=== PATIENT | female | born 1970 | race Caucasian/White ===

== ENCOUNTER 2018-01-28 08:06 | Emergency (ER) | payer BC, OTHER ==
[2018-01-28 08:10] VITALS: BP 143/98
[2018-01-28] MEDS ORDERED: Acetaminophen TAB* 325 MG PO ONE (08:16)
[2018-01-28] MEDS ORDERED: Ibuprofen TAB* 600 MG PO ONE (08:16)
--- NOTE | 2018-01-28 08:25 | ED ---
Upper Extremity Pain - HPI Summary HPI Summary: This is Ayan Nazario, documenting for attending Gabriel Ruiz MD. Pt is a 47 y/o F who presents to ED c/o left hand pain. Pain was rated as a 10/ 10 in severity at triage. 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 Used her left arm to brace her fall and states that her fifth metacarpal hurts all the way down the hand and she has bruising. Denies wrist pain, elbow pain, or thumb pain. She reports having no other issues, just wants something for the pain so that she can still drive home. Pt is right handed. - History of Current Complaint Chief Complaint: EDExtremityUpper Stated Complaint: LT HAND INJURY Time Seen by Provider: 01/28/18 08:11 Hx Obtained From: Patient Mechanism Of Injury: Fall From A Standing Position - slipped Onset/Duration: Started Hours Ago - fell around 6:45 Severity Currently: Severe - 10/10 during triage Pain Location: Hand - fifth metacarpal - Allergies/Home Medications Allergies/Adverse Reactions: Allergies Allergy/AdvReac Type Severity Reaction Status Date / Time Penicillins Allergy Nausea And Verified 01/28/18 08:21 Vomiting PMH/Surg Hx/FS Hx/Imm Hx Endocrine/Hematology History: Denies: Hx Diabetes, Hx Anemia Cardiovascular History: Denies: Hx Hypertension GI History: Denies: Hx Jaundice History: Denies: Hx Renal Disease - Surgical History Surgery Procedure, Year, and Place: TUBL LIGATION Infectious Disease History: No Infectious Disease History: Denies: Hx Shingles, Traveled Outside the [place] in Last 30 Days - Family History Known Family History: Positive: Cardiac Disease, Hypertension, Diabetes - Social History Alcohol Use: Daily Substance Use Type: Reports: None Hx Tobacco Use: Yes Smoking Status (MU): Heavy Every Day Tobacco Smoker Type: Cigarettes Have You Smoked in the Last Year: Yes Review of Systems Positive: Other - fifth metacarpal pain Positive: Bruising All Other Systems Reviewed And Are Negative: Yes Physical Exam - Summary Physical Exam Summary: Appearance: Well appearing, no pain distress Skin: warm, dry, reflects adequate perfusion Head/face: normal Eyes: EOMI, CRISTIN ENT: normal Neck: supple, non-tender Respiratory: CTA, breath sounds present Cardiovascular: RRR, pulses symmetrical Abdomen: non-tender, soft Bowel Sounds: present Musculoskeletal: swelling and tenderness over 4th and 5th metacarpal on left hand, strength/ROM intact Neuro: normal, sensory motor intact, A&Ox3 Triage Information Reviewed: Yes Vital Signs On Initial Exam: Initial Vitals Temp Pulse Resp BP Pulse Ox 97.7 F 70 16 143/98 97 01/28/18 08:08 01/28/18 08:08 01/28/18 08:08 01/28/18 08:08 01/28/18 08:08 Vital Signs Reviewed: Yes Procedures - Splinting Right Upper Extremity Location: right 5th metacarpal Hand-Made Type: orthoglass - OCL Splint: ulnar - ulnar gutter Pre-Proc Neuro Vasc Exam: normal Post-Proc Neuro Vasc Exam: normal Diagnostics - Vital Signs Vital Signs Temp Pulse Resp BP Pulse Ox 01/28/18 08:08 97.7 F 70 16 143/98 97 - Laboratory Lab Statement: Any lab studies that have been ordered have been reviewed, and results considered in the medical decision making process. - Radiology Hand X-Ray Radiology Interpretation Completed By: Radiologist - 08:10. Spiral fracture midshaft fifth metacarpal. ED Physician reviewed this report. Re-Evaluation - Re-Evaluation First Eval Re-Evaluation Time: 08:19 Comment: discussed results with pt Course/Dx - Course Course Of Treatment: Patient with a displaced metacarpal fracture. Fracture was splinted in an ulnar gutter splint. Discussed with orthopedics Will follow- up this week. Treated for pain. - Diagnoses Provider Diagnoses: Closed fracture of fifth metacarpal bone of right hand, Displaced fracture of metacarpal bone of right hand - Physician Notifications Discussed Care of Patient With: Rishi Ritchie Time Discussed With Above Provider: 08:24 Instructed by Provider To: Other - Dr. Ritchie will see her later this week. Discharge - Sign-Out/Discharge Documenting (check all that apply): Patient Departure - Discharged - Discharge Plan Condition: Improved Disposition: HOME Prescriptions: HYDROcodone/ACETAMIN 5-325 MG* [Hewitt 5-325 TAB*] 1 tab PO Q6H PRN #15 tab MDD 4 PRN Reason: for more severe pain Naproxen [Naprosyn 500 mg tab] 500 mg PO BID #14 tablet Patient Education Materials: Hand Fracture (ED) Forms: *Work Release Referrals: Erin Paris MD [Medical Doctor] - Additional Instructions: Call today to schedule appointment to be seen this week. Ice, elevate. Keep splint clean and dry. Pain medication may make you drowsy. Do not drive or taking. - Billing Disposition and Condition Condition: IMPROVED Disposition: Home
--- NOTE | 2018-01-28 08:34 | RAD ---
Indication: Left hand injury. 2 views of the left hand demonstrates a spiral fracture through the midshaft of the fifth metacarpal. Slight radial displacement of the distal fracture fragment is noted. IMPRESSION: Spiral fracture midshaft fifth metacarpal.
== END 2018-01-28 08:41 | disposition home or self-care (01) ==
LOC: ED 08:06
DX: S62.327A Displaced fracture of shaft of fifth metacarpal bone, left hand, initial encounter for closed fracture (principal); W01.0XXA Fall on same level from slipping, tripping and stumbling without subsequent striking against object, initial encounter; Y93.9 Activity, unspecified; Y92.239 Unspecified place in hospital as the place of occurrence of the external cause; Y99.0 Civilian activity done for income or pay; Z88.0 Allergy status to penicillin; Z82.49 Family history of ischemic heart disease and other diseases of the circulatory system; Z83.3 Family history of diabetes mellitus; F17.210 Nicotine dependence, cigarettes, uncomplicated
CPT/HCPCS: 99282; A9270-GY

== ENCOUNTER 2018-02-08 08:50 | Day surgery (SDC) | payer OTHER ==
--- NOTE | 2018-02-06 16:45 | HP ---
PREOPERATIVE HISTORY AND PHYSICAL: DATE OF ADMISSION: 02/08/18 [facility] PROVIDER: Erin Paris MD * (DICTATED BY TISHA WOODSON) CHIEF COMPLAINT: Left hand injury. 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 On 01/28/18, she sustained fall at work, injuring her left hand. She denies injury or pain elsewhere. She is right hand dominant. Pain is at the lateral hand, it is constant and markedly sharp, worse with any motion and lessen when at rest. She denies an injury to the hand previously. She denies any paresthesias or numbness. PAST MEDICAL HISTORY: None. PAST SURGICAL HISTORY: Right elbow surgery. She reports no complications with the anesthesia. CURRENT MEDICATIONS: Ibuprofen as needed for pain. ALLERGIES: FAMILY HISTORY: Positive for diabetes, heart disease, high blood pressure, and rheumatoid arthritis. SOCIAL HISTORY: She lives alone. 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 She denies tobacco use. She denies alcoholic beverage use. She exercises regularly. REVIEW OF SYSTEMS: A 14-point review of systems was discussed with the patient. All systems were negative except discussed in the HPI. PHYSICAL EXAMINATION GENERAL: She is a well-developed, well-nourished female, in no acute distress at rest. She is alert and oriented x3 with appropriate mood and affect. VITAL SIGNS: The patient is 5 feet 5 inches. Weighs 150 pounds. Blood pressure 126/80, pulse is 66, temperature 98.0, respirations 16. HEENT: Normocephalic, atraumatic. Her hearing and vision are grossly intact. NECK: Her trachea is midline. RESPIRATORY: Clear to auscultation bilaterally. No wheezes, rales, or rhonchi. CARDIOVASCULAR: Regular rate and rhythm. No murmurs, rubs, or gallops. Normal S1, S2. ABDOMEN: Soft, nontender, and nondistended. Normal bowel sounds. EXTREMITIES: Left upper extremity skin is intact without abrasions or open wounds. There is no significant edema, ecchymosis, or gross deformities. She has tenderness to palpation at the fifth metacarpal. There is no angular deformity of the fifth finger when extended or flexed. There is no significant malrotation with flexion or extension. She has full range of motion at the wrist. MCP, PIP, and DIP joints of all other digits sensation to light touch is intact. She has normal vascular exam. IMAGING: X-rays of the left hand were reviewed and show a fifth metacarpal shaft fracture was about 3 mm of shortening. There is no significant angular deformity. IMPRESSION: Left fifth metacarpal fracture. PLAN: The patient is to undergo left fifth metacarpal fracture closed reduction and percutaneous pinning by Dr. Paris on 02/08/18. The risks, benefits, and postoperative course were discussed with the patient at length and she would like to proceed. All of her questions were answered to her full satisfaction. She is understand to call with any problems or concerns. TISHA WOODSON [id number]/CPS #: [id number] MTDD
[~2018-02-08 08:50] MED LIST: Buffered Lidocaine 0.9% SYRIN* 5 ML/SYR SYRINGE INTRADERM ONE; Dexamethasone IV* 4 MG/ML 1 ML (4 MG) IV SLOW PU ONE; Famotidine IV* 10 MG/ML 2 ML (20 mg) IV ONE
[2018-02-08] MEDS ORDERED: Dexamethasone IV* 4 MG/ML 1 ML (4 MG) ONE (09:07)
[2018-02-08] MEDS ORDERED: Clindamycin 900 MG IVPREMIX(* 900 MG/50 ML SDV IV ONE (09:07)
[2018-02-08] MEDS ORDERED: Famotidine IV* 10 MG/ML 2 ML (20 mg) ONE (09:07)
[2018-02-08] MEDS ORDERED: Levalbuterol 0.63MG/3ML NEB* UNIT OF USE INH ONE (09:46)
[2018-02-08] MEDS ORDERED: Bupivacaine 0.5%* 50 ML VIAL ONE (09:51)
[2018-02-08] MEDS ORDERED: Bupivacaine 0.5% PF 10 ML VIAL INJ ONE ×2 (09:52→09:53)
[2018-02-08] MEDS ORDERED: oxyCODONE/Acetamin 5/325 MG* TAB PO PRN (09:53)
[2018-02-08] MEDS ORDERED: DiMENhydriNATE IV* 50 MG/ML VIAL IV PUSH PRN (09:53)
[2018-02-08] MEDS ORDERED: fentaNYL* 50 MCG/ML 2 ML VIAL (100 MCG VIAL) IV PRN (09:53)
[2018-02-08] MEDS ORDERED: Naloxone* 0.4 MG/ML 1 ML VIAL IV PRN (09:53)
[2018-02-08] MEDS ORDERED: Levalbuterol 0.63MG/3ML NEB* UNIT OF USE INH PRN (09:53)
[2018-02-08] MEDS ORDERED: Scopolamine 1.5 mg* PATCH TRANSDERM PRN (09:53)
[2018-02-08] MEDS ORDERED: Ondansetron INJ* 2 MG/ML VIAL IV PRN (09:53)
[2018-02-08] MEDS ORDERED: fentaNYL* 50 MCG/ML 5 ML VIAL (250 MCG VIAL) ONE (09:56)
[2018-02-08] MEDS ORDERED: Propofol* 10 MG/ML 20 ML BTL IV PUSH ONE ×2 (09:57)
[2018-02-08] MEDS ORDERED: Ketorolac INJ* 30 MG/ML 1 ML VIAL ONE (09:57)
[2018-02-08] MEDS ORDERED: Lidocaine 2% PF * 5 ML VIAL ONE (09:57)
[2018-02-08] MEDS ORDERED: Midazolam* 1 MG/ML 5 ML VIAL (5 MG) ONE (09:57)
[2018-02-08] MEDS ORDERED: Ondansetron INJ* 2 MG/ML VIAL ONE (09:57)
[2018-02-08] MEDS ORDERED: HYDROcodone/ACETAMIN 5-325 MG* 1 TAB ONE (11:19)
[2018-02-08 11:33] VITALS: BP 108/70
--- NOTE | 2018-02-08 14:18 | RAD ---
INDICATION: Left fifth finger surgery. COMPARISON: Comparison is made with a prior x-ray study of the left hand from January 28, 2018. TECHNIQUE: 3.2 seconds of intermittent fluoroscopic guidance were provided and 2 spot films of the right hand were obtained in the operating room. FINDINGS: The films demonstrate placement of a surgical screw spanning the oblique fracture of the fifth metacarpal. IMPRESSION: INTRAOPERATIVE CONTROL FILMS. CPT II Codes: G9500
--- NOTE | 2018-02-09 01:19 | OP ---
DATE OF OPERATION: 02/08/18 [facility] DATE OF : 66 SURGEON: Erin Paris MD ELECTRIC MOTOR WINDERS ASSEMBLER: TISHA Urban ANESTHESIA: General. PRE-OP DIAGNOSIS: Left small finger metacarpal fracture, displaced. POST-OP DIAGNOSIS: Left small finger metacarpal fracture, displaced. OPERATIVE PROCEDURE: Open reduction internal fixation left small finger metacarpal fracture. ESTIMATED BLOOD LOSS: Zero. TOURNIQUET TIME: About 20 minutes. INDICATION FOR PROCEDURE: Eliane is a 47-year-old female who injured her left hand when she tripped up the stairs at work. She accidently punched the cement stair and suffered a fracture of her fifth metacarpal mid shaft. She presents for ORIF of the left fifth metacarpal fracture. DESCRIPTION OF PROCEDURE: The patient was brought to the operating room, was given general anesthetic and placed in the supine position on the operating table with a tourniquet around her left forearm. The skin of her left hand and forearm was prepped and draped in the usual sterile fashion. The hand and forearm were exsanguinated and the tourniquet elevated to 250 mmHg. The fracture was reduced and then a guidewire from the [employer] INnate screw set was passed through the distal fragment and into the proximal fragment. A towel clip was used to help with the reduction of the fracture. The position of the hardware was checked on the C- arm in the AP and lateral views and found to be satisfactory. We had measured for a 40 mm screw. We overdrilled the guidewire past the center of the medullary canal and then placed the screw. There was a little bit of comminution created by the drill, however, the alignment of the fracture fragments both distal and proximal was perfect and there was very good purchase of the screw in both fragments. The position of the finger was very good. The wound was irrigated. The skin edges were reapproximated with 4-0 nylon suture. The wound was dressed with Xeroform, 4x4, Webril, and Coban. Patient tolerated the procedure well and was brought to the recovery room in good condition. [id number]/CPS #: [id number] [facility]
== END 2018-02-08 12:00 | disposition home or self-care (01) ==
LOC: OREAST 08:50
PROVIDERS: ATTEND Orthopaedic Surgery
DX: S62.327A Displaced fracture of shaft of fifth metacarpal bone, left hand, initial encounter for closed fracture (principal); W10.9XXA Fall (on) (from) unspecified stairs and steps, initial encounter; Y92.89 Other specified places as the place of occurrence of the external cause; Y99.0 Civilian activity done for income or pay; Z72.0 Tobacco use; M06.9 Rheumatoid arthritis, unspecified
CPT/HCPCS: 76000; C1713; J1100; J1885; J2250; J2405; J2704; J3010

== ENCOUNTER 2018-07-18 17:27 | Emergency (ER) | payer BC ==
--- OUTSIDE RECORDS SUMMARY | 2018-07-18 17:52 | XMS REPORT | Continuity of Care Document ---
:1970 External Reference #:[id number] Author Name Juliet Jesus Care Team Providers Name Role Phone Pranay Escamilla NP Primary Care Physician Unavailable Payers Type Date Identification Numbers Payment Provider Subscriber Policy Number: [id number] VERNA Del Rio Covert PayID: [id number] [address] [address] [place] [address] Effective: 2016 Policy Number: [employer] Del Rio Covert [id number] Medicine Onset: 2016 Group Number: [id number] [address] Group Name: [phone] [place] [address] PayID: [id number] [id number] Effective: 2018 Policy Number: [employer] Del Rio Covert [id number] Medicine Onset: 2018 Group Name: Fax [phone] [address] PayID: [place] [address] Advance Directives Description No Information Available Problems Date Description Provider Status Onset: 01/28/2018 Closed fracture of multiple sites of Rishi MD Erma Active metacarpus Family History Date Family Member(s) Problem(s) Comments General No Current Problems General Rheumatoid Arthritis General Colitis Father Heart Disease Mother Colitis Social History Type Date Description Comments Sex Unknown Lives With Alone 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 ETOH Use Currently consumes alcohol Tobacco Use Start: Unknown End: Patient is a former smoker Unknown Smoking Status Reviewed: 06/26/18 Patient is a former smoker Exercise Type/Frequency Exercises regularly Allergies, Adverse Reactions, Alerts Date Description Reaction Status Severity Comments 06/28/2016 Penicillins Active 06/28/2016 Tegaderm Active 06/28/2016 Metal Murphy Active Medications Medication Date Status Form Strength Qnty SIG Indications Ordering Provider Naproxen 02/06/ Active Tablets 500mg 30tabs 1 by mouth S62.327A Erin 2018 twice a day Nighat Paris B12 Fast 10/27/ Active Tablets 5000mcg 90tabs sublingual Jersey Dissolve 2017 Dispers daily Nighat Flores Ibuprofen / Active Tablets 600mg 1 by mouth Unknown 0000 three times a day as needed Tretinoin / Active Cream 0.05% apply to Unknown 0000 affected area every day Glucosamine / Active Capsules 500mg Unknown 0000 Vitamin D3 / Active Capsules Unknown 0000 Hammond 02/08/ Hx Tablets 5-325mg 10tabs 1 by mouth Erin 2017 - every 6 Paris, 05/28/ hours as M.D. [address] 02/06/ Hx Tablets DR 500mg 30tabs 1 by mouth S62.327A Erin 2017 - twice a day Wellington, 02/06/ M.DMarva 2017 Medications Administered in Office Medication Date Status Form Strength Qnty SIG Indications Ordering Provider Depomedrol Administered Injection Erin 40MG 016 Nighat Paris Immunizations Description No Information Available Vital Signs Date Vital Result Comment 06/26/2018 10:38am Height 64 inches 5'4" Weight 152.00 lb BP Systolic 122 mmHg BP Diastolic 80 mmHg Respiratory Rate 15 /min Body Temperature 98.2 F Pain Level 5 BMI (Body Mass Index) 26.1 kg/m2 05/29/2018 10:35am Height 64 inches 5'4" Weight 152.00 lb Heart Rate 76 /min Respiratory Rate 15 /min Body Temperature 96.9 F Pain Level 7 BMI (Body Mass Index) 26.1 kg/m2 04/24/2018 10:34am Height 64 inches 5'4" Weight 152.00 lb Heart Rate 82 /min BP Systolic 133 mmHg BP Diastolic 90 mmHg Body Temperature 97.2 F BMI (Body Mass Index) 26.1 kg/m2 04/01/2018 11:15am Height 64 inches 5'4" Weight 152.00 lb Heart Rate 76 /min Respiratory Rate 14 /min BMI (Body Mass Index) 26.1 kg/m2 03/11/2018 10:01am Height 65 inches 5'5" Heart Rate 63 /min BP Systolic 108 mmHg BP Diastolic 62 mmHg Respiratory Rate 16 /min Pain Level 4 02/18/2018 9:37am Height 65 inches 5'5" Heart Rate 73 /min BP Systolic 122 mmHg BP Diastolic 76 mmHg Respiratory Rate 16 /min Body Temperature 97.2 F Pain Level 5 02/06/2018 10:22am Height 65 inches 5'5" Heart Rate 66 /min BP Systolic 126 mmHg BP Diastolic 80 mmHg Respiratory Rate 16 /min Body Temperature 98.0 F Pain Level 2 01/28/2018 10:59am Height 65 inches 5'5" Weight 150.00 lb Heart Rate 72 /min Respiratory Rate 16 /min Body Temperature 97.5 F Pain Level 7 BMI (Body Mass Index) 25.0 kg/m2 11/28/2017 2:45pm Height 65 inches 5'5" Weight 150.00 lb BP Systolic 118 mmHg BP Diastolic 78 mmHg Body Temperature 97.7 F BMI (Body Mass Index) 25.0 kg/m2 10/18/2017 1:51pm Height 65 inches 5'5" Weight 150.00 lb Heart Rate 69 /min BP Systolic Sitting 119 mmHg BP Diastolic Sitting 85 mmHg Respiratory Rate 14 /min Pain Level 1 BMI (Body Mass Index) 25.0 kg/m2 09/19/2017 3:03pm Height 65 inches 5'5" Weight 142.00 lb BP Systolic 107 mmHg BP Diastolic 64 mmHg Respiratory Rate 15 /min Pain Level 5 BMI (Body Mass Index) 23.6 kg/m2 08/15/2017 2:46pm Height 65 inches 5'5" Weight 140.00 lb Heart Rate 63 /min BP Systolic 125 mmHg BP Diastolic 79 mmHg Body Temperature 97.2 F Pain Level 5 BMI (Body Mass Index) 23.3 kg/m2 05/16/2017 1:47pm Height 65 inches 5'5" Weight 140.00 lb Heart Rate 81 /min BP Systolic 132 mmHg BP Diastolic 90 mmHg Respiratory Rate 16 /min BMI (Body Mass Index) 23.3 kg/m2 03/08/2017 3:07pm Height 65 inches 5'5" Heart Rate 76 /min BP Systolic 120 mmHg BP Diastolic 76 mmHg Respiratory Rate 16 /min Body Temperature 97.6 F Pain Level 6 01/25/2017 2:55pm Height 65 inches 5'5" Weight 140.00 lb Heart Rate 77 /min BP Systolic 120 mmHg BP Diastolic 84 mmHg Respiratory Rate 17 /min Pain Level 5 BMI (Body Mass Index) 23.3 kg/m2 11/22/2016 2:50pm Height 65 inches 5'5" Weight 140.00 lb Heart Rate 84 /min BP Systolic 130 mmHg BP Diastolic 92 mmHg BMI (Body Mass Index) 23.3 kg/m2 10/02/2016 11:49am Height 64.5 inches 5'4.50" Weight 142.00 lb Heart Rate 79 /min BP Systolic 120 mmHg BP Diastolic 87 mmHg Body Temperature 97.5 F BMI (Body Mass Index) 24.0 kg/m2 09/04/2016 9:54am Height 64.5 inches 5'4.50" Weight 142.00 lb Heart Rate 68 /min BP Systolic Sitting 122 mmHg BP Diastolic Sitting 70 mmHg Respiratory Rate 16 /min Body Temperature 98.6 F Pain Level 5 BMI (Body Mass Index) 24.0 kg/m2 07/31/2016 11:58am Height 64.5 inches 5'4.50" Weight 142.00 lb Pain Level 0 BMI (Body Mass Index) 24.0 kg/m2 06/28/2016 11:32am Height 64.5 inches 5'4.50" Weight 142.00 lb Heart Rate 67 /min BP Systolic 125 mmHg BP Diastolic 83 mmHg Respiratory Rate 20 /min Pain Level 7 BMI (Body Mass Index) 24.0 kg/m2 Results Test Date Facility Test Result H/L Range Note Laboratory test 10/19/2017 [facility] C Reactive 1.66 mg/L N < 5.00 1 finding [address] [facility] [place] [address] [phone] Ferritin 73.1 ng/mL N 11-307 Iron & Iron Binding 10/19/2017 [facility] Iron 137 g/dL N 50 -[address] [place] [address] [phone] Unsaturated Iron Binding 219 g/dL Total Iron Binding Capacity 356 g/dL N 250-450 Transferrin 254 mg/dL N 203-362 % Iron Saturation 38 % N 15-55 Celiac Hla 10/19/2017 [facility] Hla-Dqa1 SEE BELOW 2 [address] [place] [address] [phone] Hla-DQB1 SEE BELOW 3 Celiac Gene Pairs Present? Yes Celiac Gene Interpretation See Comment 4 Hla B27 10/19/2017 [facility] Hla B27 Negative [address] [place] [address] [phone] Hla B27 Interp See Comment 6 Vitamin B12 And 10/19/2017 [facility] Vitamin B12 270 pg/mL N 180-914 7 Folate Serum [address] [place] [address] [phone] Folic Acid (Folate) 12.56 ng/mL >3.99 Laboratory test 10/19/2017 [facility] Vitamin D, 1,25 65 pg/mL 18-78 [address] [place] [address] [phone] 1 Acute inflammation: >10.00 2 RESULT: 02:01,05:01 REFERENCE VALUE Not Applicable 3 RESULT: 02:01,02:02 DQ Serologic Equivalent: 2,2 REFERENCE VALUE Not Applicable 4 These genes are permissive for celiac disease. The absence of HLA celiac permissive genes would make the presence of celiac disease unlikely. However, these genes can also be present in the normal population. ADDITIONAL INFORMATION Method: Molecular typing of HLA antigens performed using reverse SSOP and/or SSP methods, reported as serological equivalents and low to medium resolution molecular values. Performing Laboratory CLIA# [id number] Test Performed by: [facility] [address] [address] 5 REFERENCE VALUE Not Applicable 6 RESULT: HLA-B27 antigen was not detected. ADDITIONAL INFORMATION Method: Flow Cytometry Performing Laboratory CLIA# [id number] Test Performed by: [facility] - [address] [place] [address] 7 Normal Range 180 to 914 Indeterminate Range 145 to 180 Deficient Range <145 8 ADDITIONAL INFORMATION This test was developed and its performance characteristics determined by [facility] in a manner consistent with CLIA requirements. This test has not been cleared or approved by the U.S. Food and Drug Administration. Test Performed by: [facility] - [facility] [address] [place] [address] Procedures Date Code Description Status 02/08/2018 25709 open tx of metacarpal fx,single inclds internal fixation Completed when per 02/08/2018 03061 open tx of metacarpal fx,single inclds internal fixation Completed when per 02/08/2018 91538 open tx of metacarpal fx,single inclds internal fixation Completed when per 06/28/2016 Injection Single Tendon Origin/Insertion Completed 06/28/2016 Injection Single Tendon Origin/Insertion Completed Encounters Type Date Location Provider Dx Diagnosis Office Visit 05/29/2018 Orthopedic Mary Ellen Carias, S62.327D Disp fx of shaft 11:00a Services Of Mohini. RPA-C of 5th MC bone, l hand, 7thD S62.327D Disp fx of shaft of 5th MC bone, l hand, 7thD Office Visit 02/06/2018 Orthopedic Erin S62.327A Disp fx of shaft 9:45a Services Of Nighat Paris of fifth C.M.A. metacarpal bone, left hand, init S62.327A Disp fx of shaft of fifth metacarpal bone, left hand, init Office Visit 01/28/2018 Orthopedic Rishi Ritchie, S62.307A Unsp fracture of 11:30a Services Of fifth metacarpal C.M.A. bone, left hand, init S62.307A Unsp fracture of fifth metacarpal bone, left hand, init W19.xxxA Unspecified fall, initial encounter Office Visit 11/28/2017 Orthopedic Erin M77.12 Lateral 2:30p Services Of Nighat Paris epicondylitis, left C.M.A. elbow Office Visit 10/18/2017 Rheumatology Jersey Flores, M79.1 Myalgia 2:00p Services Of Isaiah Disla M54.2 Cervicalgia M06.4 Inflammatory polyarthropathy R20.8 Other disturbances of skin sensation K76.0 Fatty (change of) liver, not elsewhere classified M54.5 Low back pain Office Visit 09/19/2017 Orthopedic Erin M77.12 Lateral 2:45p Services Of Nighat Paris epicondylitis, left C.M.A. elbow Office Visit 08/15/2017 Orthopedic Erin M77.12 Lateral 2:30p Services Of Nighat Paris epicondylitis, left C.M.A. elbow Office Visit 05/16/2017 Orthopedic Leslie Liu.12 Lateral 1:15p Services Of RPA-C epicondylitis, left C.M.A. elbow Office Visit 03/08/2017 Orthopedic Erin Rodriguez77.12 Lateral 3:00p Services Of Nighat Paris epicondylitis, left C.M.A. elbow M77.12 Lateral epicondylitis, left elbow Office Visit 01/25/2017 Orthopedic Mary Ellen Nelson.12 Lateral 2:45p Services Of Bitting, RPA-C epicondylitis, left C.M.A. elbow Office Visit 11/22/2016 Orthopedic Mary Ellen MRomero.12 Lateral 2:15p Services Of Bitting, RPA-C epicondylitis, left C.M.A. elbow M77.12 Lateral epicondylitis, left elbow Office Visit 10/02/2016 Orthopedic Erin Nelson.12 Lateral 11:30a Services Of Nighat Paris epicondylitis, left C.M.A. elbow Office Visit 09/04/2016 Orthopedic Erin Nelson.12 Lateral 9:45a Services Of Nighat Paris epicondylitis, left C.M.A. elbow Office Visit 07/31/2016 Orthopedic Erin Nelson.12 Lateral 11:15a Services Of Nighat Paris epicondylitis, left C.M.A. elbow Office Visit 06/28/2016 Orthopedic Erin Nelson.12 Lateral 11:00a Services Of Nighat Paris epicondylitis, left C.M.A. elbow M77.12 Lateral epicondylitis, left elbow Office Visit 09/18/2008 2:30p Neurosurgery Messi Dutton 847.0 Sprains & Services Of Isaiah Piper M.D. Strains Neck Plan of Treatment Future Appointment(s):08/07/2018 3:30 pm - Erin Paris M.D. at [facility]/26/2018 - Erin Paris M.D.S62.327D Displaced fracture of shaft of fifth metacarpal bone, left hFollow up:Follow up: 6 bhcmhE87.542 Contracture, left handM72.0 Palmar fascial fibromatosis [Dupuytren]
--- OUTSIDE RECORDS SUMMARY | 2018-07-18 17:52 | XMS REPORT | Continuity of Care Document ---
:1970 External Reference #:[id number] Author Name ANTONI Joseph Address [address] [place] [address] Care Team Providers Name Role Phone Yaz Farfan NP Care Team Information Train Gateman Unavailable Payers Type Date Identification Numbers Payment Provider Subscriber Effective: Policy Number: [id number] Tiesha CYR Jyoti Rodriguez Covert 2002 Expires: 2012 Group Name: [employer] [address] [address] PayID: [id number] BERNARDO Wilson [id number] Effective: 2012 Policy Number: [id number] Frieda MAGDALENEVERNA Rodriguez Covert Expires: 2018 Group Name: [employer] [address] [address] PayID: [id number] BERNARDO Wilson [id number] Onset: 2016 Policy Number: [id number] [facility] Jyoti Rodriguez Covert Medicine PayID: [id number] [place] [address] Effective: 2014 Policy Number: [id number] Tiesha CYR Jyoti Rodriguez Covert Group Name: MAGDALENE/VERNA castaneda CNSha [address] [address] PayID: [id number] BERNARDO Wilson [id number] Advance Directives Description No Information Available Problems Description No Active Problems Family History Date Family Member(s) Problem(s) Comments Father CAD angioplasty Mother Hypertension Mother Thyroid Disease Paternal Grandfather CAD Paternal Grandfather due to [place] () Paternal Grandmother Diabetes Paternal Grandmother due to "Old Age" () Paternal Grandmother Dementia Maternal Grandmother Macular Degeneration Maternal Grandmother due to Cancer, Skin () - malignant melanoma Paternal Uncles CAD Social History Type Date Description Comments Sex Unknown Marital Status Lives With Alone Diet Healthy, Well Balanced Sleep Typically sleeps 8 hours a night Smoke-Free Home is smoke-free 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 Stopped drinking about 2 months ago Tobacco Use Start: Unknown End: Patient is a former Unknown smoker Smoking Status Reviewed: 08/27/17 Patient is a former smoker Exercise Type/Frequency exercises regularly Allergies, Adverse Reactions, Alerts Date Description Reaction Status Severity Comments 07/02/2007 Penicillins Active nausea Medications Medication Date Status Form Strength Qnty SIG Indications Ordering Provider Fluoxetine HCL 07/12 Active Capsules 10mg 60cap 1 by mouth F43.0 Ronenyolie s every morning Samantha Escamilla, for one week [facility] then take two by mouth daily Zolpidem 07/12 Active Tablets 10mg 30tab take 1/2 to 1 F43.0 Shawnti Tar s tablet by Samantha Escamilla mouth at [facility] bedtime as needed for sleep; maximum daily dose=1 Tretinoin 08/27 Active Cream 0.05% 15g Apply bid to 706.1 involved areas Shortle, on face [employer] Meclizine HCL 08/27 Active Tablets 25mg 30tab 1 by mouth 386.11 s q6hr as needed Samantha Escamilla dizziness [facility] Ibuprofen 08/22 Active Tablets 600mg 120ta take 1 tablet M77.12 bs by mouth 3 to Erika, 4 times daily [facility] with food as needed for right elbow pain or stiffness Nicoderm CQ 10/30 Hx Patches 21mg/24HR 14uni apply one 24HR ts patch to skin, Shortle, - replace daily [employer] 07/12 for up to days then reduce to 14mg patch Duloxetine HCL 12/[address] 30mg 30cap 1 by mouth F32.89 Aileen Part s every day P. - Blegen, 07/27 M.D. Duloxetine HCL 10/[address] 20mg 30cap 1 by mouth F32.89 Muriel Part s every day Erika, - [facility]-C 12/05 Clindamycin HCL 10/12 Hx Capsules 300mg 30cap take 1 capsule J02.0 Norman s by mouth every [place] - 8 hours for 10 , Hydrocodone-Aaron 08/28 Hx Tablets 5-325mg 14tab 1 by mouth R10.9 Shawnti taminophen s four times a R. Storm, - day as needed [facility] 07/27 severe pain Azithromycin 04/06 Hx Tablets 250mg 6tabs take 2 tablets J01.90 Norman by mouth one [place] - time then take , 06/12 one daily 4 days. do not fill until patient calls. Diflucan 04/06 Hx Tablets 150mg 1tabs 1 tab by mouth J01.90 Normna once. do not [place] - fill until , 07/27 patient calls. Nicoderm CQ 04/04 Hx Patches 14mg/24HR 14uni apply one nt 24HR ts patch to skin, R. Storm, - replace daily [facility] 07/27 for up to days then go to 7mg Nicoderm CQ 04/04 Hx Patches 7mg/24HR 14uni apply [address] 24HR ts to skin daily R. Storm, - for 14 days [facility] 07/27 Nicoderm CQ 03/23 Hx Patches 21mg/24HR 14uni apply one nt 24HR ts patch to skin, R. Storm, - replace daily [facility] 07/27 for up to days then reduce to 14mg patch Nicoderm CQ 12/01 Hx Patches 7mg/24HR 14uni apply [address] nt 24HR ts to skin daily R. Andi, - for 14 days [facility] 03/23 Nicoderm CQ 09/22 Hx Patches 21mg/24HR 14uni apply one 24HR ts patch to skin Samantha Escamilla, - daily, change [facility] 10/06 every 24 hours /2015 for 2 weeks then decrease to 14mg patch Nicoderm CQ 09/22 Hx Patches 14mg/24HR 14uni apply one 24HR ts patch to skin, R. Storm, - replace daily [facility]-C 10/22 for 2 weeks then reduce to 7mg patch Nicoderm CQ 09/22 Hx Patches 7mg/24HR 14uni apply [address] 24HR ts to skin daily RMarva Storm, - for 14 days [facility] 10/22 Trazodone HCL 03/18 Hx Tablets 50mg 30tab take 1/2 or 1 780.52 s tablet at Samantha Escamilla, - bedtime if [facility] 10/12 needed for sleep Tramadol HCL 01/29 Hx Tablets 50mg 20tab Take One s Tablet By Erika, - Mouth Every 6 [facility] 07/27 Hours Needed For Pain; Maximum Daily Dose=4 Clindamycin 10/23 Hx Gel 1% 60gm apply a thin 684 film to face Erika, - once or twice [employer]-C 10/12 Chantix 06/14 Hx Tablets 1mg 60tab 1 twice a day F17.200 s - take one Erika, - tablet by [facility]-C 10/12 mouth twice daily Lotrisone 02/10 Hx Cream 1-0.05% 15g apply to areas 782.1 of rash on K.W. - buttocks bid Jacky, 10/12 M.D. /2017 Forearm 08/22 Hx 1unit for right M77.12 s lateral K.W. Band - epicondylitis Jacky, 07/27 M.D. Tretinoin 08/22 Hx Cream 0.05% 15g Apply Ud bid 706.1 to involved K.W. - areas on face Jacky, 07/27 M.D. Urea-C40 08/22 Hx Lotion 40% 4oz Apply bid to 706.1 cracked skin K.W. - on heels. Jacky, 02/10 M.D. Bactroban Cream 04/27 Hx Cream 2% 1unit Apply thin 709.8 s layer to Finnegan, - affected area [employer] 02/10 Cephalexin 11/01 Hx Capsules 500mg 20cap one tab bid x 3 s 10 days K.W. - Jacky, 02/10 M.D. Fluconazole 11/01 Hx Tablets 150mg 2tabs 1 po now, november repeat in 10 K.W. - days if sx Jacky, 02/10 still present .D. Sodium 11/30 Hx Solution 10% 5ml ii gtts OD tid-qid after K.W. - warm soaks Jacky, 11/01.D. Diflucan 07/18 Hx Tablets 150mg 1tabs 1 tablet once prn vaginal K.W. - itching Jacky, 11/01.D. Ultram 05/01 Hx Tablets 50mg 30tab one to two s every 6 hours K.W. - for pain Jacky, 11/01.D. Bactroban 09/21 Hx Ointment 15Gra apply to 709.9 Ointment ms wound/lesion K.W. - two times per Jacky, 11/01 day until .D. healed Excuse From 09/21 Hx out of work 311 -8- pm K.W. - through Jacky, 11/0109-24-05 for M.D. medical reasons Amoxicot 06/27 Hx Capsules 875mg 20cap use 1 tab bid Muriel s x 10 days Soboroff, - M.D. 06/27 Amoxacillin 06/27 Hx Capsules 875mg 20cap use 1 tab bid Muriel s x 10 days Soboroff, - M.D. 08/09 Physical 12/30 Hx 6unit PT for Muriel s tendonitis 2nd Soboroff, - and 3rd M.D. 08/09 fingers R hand /2005 Excuse For Work Hx has medical [address] /0000 illness, K.W. - should be out Jacky, 09/26 of work until 11/09/09. Immunizations CPT Code Status Date Vaccine Lot # [id number] Given 05/07/2018 Influenza Virus Vaccine, Quadrivalent, 3 Yr > Quad, Preserv Free 77655 Given 06/13/2017 Influenza Virus Vaccine, Quadrivalent, 3 Yr > Quad, Preserv Free 33866 Given 05/06/2014 Influenza Virus Vaccine, Quadrivalent, 3 Yr > Quad, Preserv Free 54638 Given 06/14/2011 Tdap (Adacel) [id number] Vital Signs Date Vital Result Comment 07/12/2018 10:41am Weight 146.00 lb Weight 66.226 kg BP Systolic 110 mmHg BP Diastolic 80 mmHg Heart Rate 97 /min Body Temperature 98.5 F Respiratory Rate 16 /min 08/27/2017 8:05am Weight 152.00 lb Weight 68.947 kg BP Systolic 108 mmHg BP Diastolic 64 mmHg Heart Rate 68 /min Body Temperature 97.0 F Respiratory Rate 16 /min Height 65 inches 5'5" BMI (Body Mass Index) 25.3 kg/m2 02/26/2017 3:39pm Weight 151.00 lb Weight 68.494 kg BP Systolic 108 mmHg BP Diastolic 72 mmHg Heart Rate 76 /min Body Temperature 98.0 F Respiratory Rate 16 /min O2 % BldC Oximetry 98 % 10/13/2016 4:06pm Weight 143.00 lb Weight 64.865 kg BP Systolic 110 mmHg BP Diastolic 80 mmHg Heart Rate 96 /min 10/12/2016 11:18am Weight 143.00 lb Weight 64.865 kg BP Systolic 116 mmHg BP Diastolic 86 mmHg Heart Rate 76 /min Body Temperature 97.5 F Respiratory Rate 16 /min O2 % BldC Oximetry 98 % 08/28/2016 2:11pm Weight 143.00 lb Weight 64.865 kg BP Systolic 103 mmHg BP Diastolic 75 mmHg Heart Rate 64 /min Body Temperature 98.9 F 06/12/2016 11:28am Weight 137.00 lb Weight 62.143 kg BP Systolic 138 mmHg BP Diastolic 88 mmHg Heart Rate 81 /min Body Temperature 98.6 F Respiratory Rate 18 /min O2 % BldC Oximetry 98 % 04/06/2016 10:00am Weight 143.00 lb Weight 64.865 kg BP Systolic 134 mmHg BP Diastolic 98 mmHg Heart Rate 84 /min Body Temperature 97.2 F Respiratory Rate 16 /min Height 64 inches 5'4" BMI (Body Mass Index) 24.5 kg/m2 O2 % BldC Oximetry 98 % 08/27/2014 11:31am Weight 143.00 lb Weight 64.865 kg BP Systolic 110 mmHg BP Diastolic 78 mmHg Heart Rate 64 /min Body Temperature 97.5 F 07/20/2014 2:52pm Weight 143.00 lb Weight 64.865 kg BP Systolic 120 mmHg BP Diastolic 80 mmHg Heart Rate 72 /min 10/23/2012 10:27am Weight 143.00 lb Weight 64.865 kg BP Systolic 114 mmHg BP Diastolic 74 mmHg Heart Rate 72 /min Body Temperature 98.3 F Height 64.75 inches 5'4.75" BMI (Body Mass Index) 24.0 kg/m2 06/14/2011 2:12pm Weight 131.00 lb Weight 59.422 kg BP Systolic 112 mmHg BP Diastolic 68 mmHg Heart Rate 85 /min Height 65 inches 5'5" BMI (Body Mass Index) 21.8 kg/m2 Last Menstrual Period 0 O2 % BldC Oximetry 98 % 02/10/2011 11:52am Weight 131.00 lb Weight 59.422 kg BP Systolic 118 mmHg BP Diastolic 70 mmHg Heart Rate 76 /min Body Temperature 98.5 F 08/22/2010 9:51am Weight 127.00 lb Weight 57.607 kg BP Systolic 100 mmHg BP Diastolic 70 mmHg Heart Rate 72 /min Body Temperature 97.5 F 04/27/2010 4:43pm Weight 127.00 lb Weight 57.607 kg BP Systolic 120 mmHg BP Diastolic 80 mmHg Heart Rate 80 /min Body Temperature 98.8 F 11/01/2009 2:47pm Weight 119.00 lb Weight 53.978 kg BP Systolic 98 mmHg BP Diastolic 68 mmHg Heart Rate 92 /min Body Temperature 98.7 F 09/06/2007 11:07am Weight 125.00 lb Weight 56.700 kg BP Systolic 122 mmHg BP Diastolic 70 mmHg Heart Rate 86 /min Body Temperature 98.6 F 07/02/2007 10:11am BP Systolic 110 mmHg BP Diastolic 68 mmHg Heart Rate 62 /min Body Temperature 98.6 F Oral 04/25/2006 12:29pm Weight 121.50 lb Weight 55.112 kg BP Systolic 108 mmHg BP Diastolic 74 mmHg Heart Rate 68 /min 09/21/2005 1:07pm Weight 129.00 lb Weight 58.514 kg BP Systolic 110 mmHg BP Diastolic 70 mmHg Heart Rate 76 /min Body Temperature 96.1 F Respiratory Rate 18 /min 08/09/2005 4:36pm Weight 129.00 lb Weight 58.514 kg BP Systolic 110 mmHg BP Diastolic 78 mmHg Heart Rate 72 /min 06/17/2004 4:23pm Weight 122.00 lb Weight 55.339 kg BP Systolic 110 mmHg BP Diastolic 70 mmHg Body Temperature 96.7 F 12/30/2002 3:56pm Weight 122.00 lb Weight 55.339 kg BP Systolic 100 mmHg BP Diastolic 70 mmHg 08/15/2002 4:17pm Weight 120.00 lb Weight 54.400 kg BP Systolic 102 mmHg BP Diastolic 70 mmHg Body Temperature 97.9 F 06/25/2002 8:39am Weight 117.00 lb Weight 53.100 kg BP Systolic 110 mmHg BP Diastolic 80 mmHg Heart Rate 78 /min Respiratory Rate 18 /min Height 65 inches BMI (Body Mass Index) 19.5 kg/m2 12/17/2001 4:25pm BP Systolic 102 mmHg BP Diastolic 64 mmHg Heart Rate 88 /min Results Test Date Facility Test Result H/L Range Note Laboratory test 07/12/2018 [facility] T. <pending> finding [phone] Vaginalis, Urine, Amp Rna Iron & Iron 10/19/2017 [facility] Iron 137 g/dL N 50-212 Binding Capacity [phone] Unsaturated Iron Binding 219 g/dL Total Iron Binding Capacity 356 g/dL N 250-450 Transferrin 254 mg/dL N 203-362 % Iron Saturation 38 % N 15-55 Laboratory test 10/19/2017 [facility] C Reactive 1.66 mg/L N < 5.00 1 finding [phone] Protein Ferritin 73.1 ng/mL N 11-307 Folic Acid (Folate) 12.56 ng/mL >3.99 Vitamin B12 270 pg/mL N 180-914 2 Hla B27 10/19/2017 [facility] Hla B27 Negative 3 [phone] Hla B27 Interp See Comment 4 Laboratory test 10/19/2017 [facility] Vitamin D, 1,25 65 pg/mL 18-78 5 finding [phone] Dihydroxy Celiac Hla 10/19/2017 [facility] Hla-Dqa1 SEE BELOW 6 [phone] Hla-DQB1 SEE BELOW 7 Celiac Gene Pairs Present? Yes Celiac Gene Interpretation See Comment 8 CBC Auto Diff 08/27/2017 [facility] White Blood 3.9 10^3/uL N 3.5-10.8 [phone] Count Red Blood Count 4.20 10^6/uL N 4.0-5.4 Hemoglobin 14.9 g/dL N 12.0-16.0 Hematocrit 44 % N 35-47 Mean Corpuscular Volume 105 fL High 80-97 Mean Corpuscular Hemoglobin 35 pg High 27-31 Mean Corpuscular HGB Conc 34 g/dL N 31-36 Red Cell Distribution Width 12 % N 10.5-15 Platelet Count 152 10^3/uL N 150-450 Mean Platelet Volume 10 um3 N 7.4-10.4 Abs Neutrophils 1.2 10^3/uL Low 1.5-7.7 Abs Lymphocytes 1.9 10^3/uL N 1.0-4.8 Abs Monocytes 0.4 10^3/uL N 0-0.8 Abs Eosinophils 0.3 10^3/uL N 0-0.6 Abs Basophils 0 10^3/uL N 0-0.2 Abs Nucleated RBC 0 10^3/uL Granulocyte % 31.7 % Low 38-83 Lymphocyte % 49.3 % High 25-47 Monocyte % 10.9 % High 1-9 Eosinophil % 7.3 % High 0-6 Basophil % 0.8 % N 0-2 Nucleated Red Blood Cells % 0.1 Comp Metabolic Panel 08/27/2017 [facility] Sodium 140 mmol/L N 133-145 [phone] Potassium 4.0 mmol/L N 3.5-5.0 Chloride 106 mmol/L N 101-111 Co2 Carbon Dioxide 27 mmol/L N 22-32 Anion Gap 7 mmol/L N 2-11 Glucose 78 mg/dL N 70-100 Blood Urea Nitrogen 15 mg/dL N 6-24 Creatinine 0.83 mg/dL N 0.51-0.95 BUN/Creatinine Ratio 18.1 N 8-20 Calcium 9.7 mg/dL N 8.6-10.3 Total Protein 6.8 g/dL N 6.4-8.9 Albumin 4.6 g/dL N 3.2-5.2 Globulin 2.2 g/dL N 2-4 Albumin/Globulin Ratio 2.1 N 1-3 Total Bilirubin 0.50 mg/dL N 0.2-1.0 Alkaline Phosphatase 62 U/L N 34-104 Alt 14 U/L N 7-52 Ast 16 U/L N 13-39 Egfr Non- 73.1 >60 Egfr 94.0 >60 9 Lipid Profile 08/27/2017 [facility] Triglycerides 145 mg/dL 10 (Trig/Chol/HDL) [phone] Cholesterol 177 mg/dL 11 HDL Cholesterol 65.0 mg/dL 12 LDL Cholesterol 83 mg/dL 13 Laboratory test 08/27/2017 [facility] TSH (Thyroid 2.23 mcIU/mL N 0.34-5.60 14 finding [phone] Stim Horm) Free T4 (Free Thyroxine) 0.74 ng/dL N 0.61-1.12 15 T3 Total 1.20 ng/mL N 0.87-1.78 16 Thyroperoxidase AB 0.60 IU/mL N <9 17 Erythrocyte Sed Rate 10 mm/Hr N 0-14 18 C Reactive Protein 1.64 mg/L N < 5.00 19 Rheumatoid Factor <15 IU/mL <15 20 Tick-Borne Panel 02/28/2017 [facility] Babesia Negative N Negative PCR Blood [phone] microti PCR Babesia ducani Negative N Negative Babesia divergens/Mo-1 Negative N Negative 21 Anaplasma phagocytophilum Negative N Negative Ehrlichia chaffeensis Negative N Negative Ehrlichia ewingii/canis Negative N Negative Ehrlichia muris-like Negative N Negative 22 B. miyamotoi PCR, B Negative N Negative 23 Lyme Western 02/28/2017 [facility] Lyme Disease Negative N Negative Blot [phone] IgG Ab WB Lyme Disease IgG Bands Present No bands detecte <SEE NOTE> kDa N 24 Lyme Disease IgM Ab WB Negative N Negative Lyme Disease IgM Bands Present No bands detecte <SEE NOTE> kDa N 25 Lyme Disease Interpretation See Comment N 26 CBC Auto Diff 02/28/2017 [facility] White Blood 3.8 10^3/uL N 3.5-10.8 [phone] Count Red Blood Count 4.19 10^6/uL N 4.0-5.4 Hemoglobin 14.4 g/dL N 12.0-16.0 Hematocrit 44 % N 35-47 Mean Corpuscular Volume 104 fL High 80-97 Mean Corpuscular Hemoglobin 34 pg High 27-31 Mean Corpuscular HGB Conc 33 g/dL N 31-36 Red Cell Distribution Width 12 % N 10.5-15 Platelet Count 137 10^3/uL Low 150-450 Mean Platelet Volume 10 um3 N 7.4-10.4 Abs Neutrophils 1.6 10^3/uL N 1.5-7.7 Abs Lymphocytes 1.6 10^3/uL N 1.0-4.8 Abs Monocytes 0.4 10^3/uL N 0-0.8 Abs Eosinophils 0.3 10^3/uL N 0-0.6 Abs Basophils 0 10^3/uL N 0-0.2 Abs Nucleated RBC 0 10^3/uL N Granulocyte % 41.3 % N 38-83 Lymphocyte % 41.0 % N 25-47 Monocyte % 9.5 % High 1-9 Eosinophil % 7.2 % High 0-6 Basophil % 1.0 % N 0-2 Nucleated Red Blood Cells % 0.1 N Comp Metabolic Panel 02/28/2017 [facility] Sodium 137 mmol/L N 133-145 [phone] Potassium 4.2 mmol/L N 3.5-5.0 Chloride 103 mmol/L N 101-111 Co2 Carbon Dioxide 28 mmol/L N 22-32 Anion Gap 6 mmol/L N 2-11 Glucose 90 mg/dL N 70-100 Blood Urea Nitrogen 11 mg/dL N 6-24 Creatinine 0.72 mg/dL N 0.51-0.95 BUN/Creatinine Ratio 15.3 N 8-20 Calcium 9.5 mg/dL N 8.6-10.3 Total Protein 6.9 g/dL N 6.4-8.9 Albumin 4.5 g/dL N 3.2-5.2 Globulin 2.4 g/dL N 2-4 Albumin/Globulin Ratio 1.9 N 1-3 Total Bilirubin 0.50 mg/dL N 0.2-1.0 Alkaline Phosphatase 66 U/L N 34-104 Alt 13 U/L N 7-52 Ast 17 U/L N 13-39 Egfr Non- 86.5 N >60 Egfr 111.2 N >60 27 Connective Tissue 02/28/2017 [facility] Anti-Nuclear 0.2 U N 28 Panel [phone] Antibody Cyclic Citrullinated Peptide <15.6 U N 29 Interpretation See Comment N 30 Laboratory test 02/28/2017 [facility] Total T3 0.92 ng/mL N 0.87-1.78 finding [phone] TSH (Thyroid Stimulating Horm) 1.58 mcIU/mL N 0.34-5.60 Free T4 0.61 ng/dL N 0.61-1.12 Thyroperoxidase AB 0.96 IU/mL N <9 Rheumatoid Factor <15 IU/mL N <15 31 C Reactive Protein 2.11 mg/L N < 5.00 32 Erythrocyte Sed Rate 11 mm/Hr N 0-14 Vitamin D Total 25(Oh) 29.6 ng/mL Low 30-50 Laboratory test 10/12/2016 [facility] Strep Screen pos Neg finding [phone] - Laboratory test 08/28/2016 [facility] Urine Culture And SEE RESULT 33 finding [phone] Sensitivities BELOW Urine DIP 08/28/2016 [facility] House Lab Leukocytes TRACE Neg ([phone])- - Urine Nitrites NEG Neg Urobilinogen NORM Norm Total Protein, Urine TRACE Neg Urine pH 7 High 5-6 Urine Blood NEG Neg Specific Empire 1.010 1.01-1.02 Urine Ketones NEG Neg Urine Bilirubin NEG Neg Urine Glucose NORM Norm Cytology Non-Surgical Asst 09/17/2014 [facility] DATE: 09 [phone] 09/17/ <SEE NOTE> Laboratory test 07/20/2014 [facility] TSH (Thyroid 1.36 IU/mL N 0.34- finding [phone] Stimulating Horm) 5.60 T4 5.76 g/dL Low 6.09-12.23 Total T3 0.89 ng/mL N 0.87-1.78 Free T4 0.79 ng/mL N 0.61-1.12 Thyroid 07/20/2014 [facility] Thyroid Peroxidase 0.87 N <9 Autoantibodies [phone] Antibodies IU/mL Thyroglobulin Tumor 07/20/2014 [facility] Thyroglobulin <1.8 N <4.0 Marker [phone] Antibody IU/mL Thyroglobulin Tumor Marker 5.9 ng/mL Abnormal 35 Thyroglobulin Interpretation See Comment N 36 Laboratory test 10/10/2013 [facility] Free T4 0.84 ng /mL 0.61-1.12 finding [phone] TSH (Thyroid Stimulating Horm) 1.43 IU/mL 0.34-5.60 Vitamin D, 25 10/10/2013 [facility] 25-Hydroxy Vitamin <4.0 ng/mL Hydroxy [phone] D2 25-Hydroxy Vitamin D3 46 ng/mL 25-Hydroxy Vitamin D Total 46 ng/mL 37 Laboratory test 10/23/2012 [facility] Fungal Cult ( SEE NOTE) 38 finding [phone] Skin/Hair/Nails Wound 10/23/2012 [facility] Wound/Misc (SEE NOTE) 39 Culture/Sensi [phone] Culture-Gram Stain HSV/VZV Derm PCR 10/21/2012 [facility] hs/VZ Source face [phone] hs/VZ PCR Result See Comment 40 (HCG) 11/26/2009 [facility] Specific 1.025 1.010-1.030 41 Urine [phone] Empire Urine NEGATIVE Negative 42 Type And Screen 11/26/2009 [facility] Patient Blood B POSITIVE [phone] Type Antibody Screen NEGATIVE Specimen Discard Date 12/10/09 43 CBC With 11/26/2009 [facility] White Blood 4.8 CUMM 4.8-10.8 Electronic Diff [phone] Count Red Cell Count 3.53 CUMM Low 4.2-5.4 Hemoglobin 13.1 g/dL 12.0-16.0 Hematocrit 37 % 35-47 Mean Corpuscular Volume 106 um3 High 79-97 44 Mean Corpuscular Hemoglob 37 pg High 27-31 Mean Corpuscular HGB Cone 35 g/dL 32-36 Redcell Distribution WDTH 13 % 10.5-15 Platelet Count 130 CUMM Low 150-450 Mean Platelet Volume 8.9 um3 7.4-10.4 Gran % 46.2 % 38-83 Lymph % 37.1 % 25-47 Mononuclear % 10.6 % High 1-9 Eosinophil % 5.3 % 0-6 Basophil % 0.8 % 0-2 Abs Lymphs 1.8 1.0-4.8 Abs Mononuclear 0.5 0-0.8 Absolute Neutrophil Count 2.2 1.5-7.7 Abs Eosinophils 0.3 0-0.6 Abs Basophils 0 0-0.2 45 CBC With 11/18/2009 [facility] White Blood 4.8 CUMM 4.8-10.8 Electronic Diff [phone] Count Red Cell Count 3.79 CUMM Low 4.2-5.4 Hemoglobin 14.0 g/dL 12.0-16.0 Hematocrit 40 % 35-47 Mean Corpuscular Volume 105 um3 High 79-97 Mean Corpuscular Hemoglob 37 pg High 27-31 Mean Corpuscular HGB Cone 35 g/dL 32-36 Redcell Distribution WDTH 13 % 10.5-15 Platelet Count 161 CUMM 150-450 Mean Platelet Volume 8.9 um3 7.4-10.4 Gran % 51.5 % 38-83 Lymph % 38.0 % 25-47 Mononuclear % 8.3 % 1-9 Eosinophil % 1.4 % 0-6 Basophil % 0.8 % 0-2 Abs Lymphs 1.8 1.0-4.8 Abs Mononuclear 0.4 0-0.8 Absolute Neutrophil Count 2.5 1.5-7.7 Abs Eosinophils 0.1 0-0.6 Abs Basophils 0 0-0.2 46 Laboratory test 11/18/2009 [facility] Vitamin B12 461 pg/mL 180-914 finding [phone] Vitamin D, 25 11/18/2009 [facility] 25-Hydroxy <4.0 ng/mL () Hydroxy [phone] Vitamin D2 25-Hydroxy Vitamin D3 54 ng/mL () 25-Hydroxy Vitamin D Total 54 ng/mL () 47 Retic Count 11/18/2009 [facility] Reticulocyte Count 1.12 % 0.5-1.5 [phone] Corrected Retic 1.0 % 0.5-1.5 Retic Index 1.0 Mean Retic Volume 122.1 Immature Retic Fraction 0.32 RBC Retic Count 3.79 CUMM Low 4.6-6.2 Hematocrit For Retic Coun 40 % 35-47 Laboratory test 11/18/2009 [facility] Folic Acid 8.6 NG/ML 2-16 finding [phone] Erythrocyte Sed Rate 5 MM/HR 0-15 C Reactive Protein < 0.5 mg/dL Less Than 0.5 Comp Metabolic 11/01/2009 [facility] Sodium 140 mmol/ L 135-145 48 Panel [phone] Potassium 4.1 mmol/L 3.5-5.0 Chloride 104 mmol/L 101-111 Co2 (Carbon Dioxide) 26.0 mmol/L 22-32 Anion Gap 10.0 mmol/L 2-11 49 Glucose 84 mg/dL 70-100 50 BUN 11 mg/dL 6-24 Creatinine 0.59 mg/dL 0.50-1.40 One Over Creatinine 1.60 BUN/Creatinine Ratio 18.6 8-20 Calcium 9.1 mg/dL 8.1-9.9 51 Total Protein 7.5 GM/DL 6.2-8.1 Albumin 4.3 GM/DL 3.6-5.4 Globulin 3.2 GM/DL 2-4 Albumin/Globulin Ratio 1.3 1-3 Bilirubin Total 0.6 mg/dL 0.4-1.5 52 Alkaline Phosphatase 52 U/L 30-110 Alt (SGPT) 13 U/L Low 14-54 Ast (Sgot) 17 U/L 12-42 eGFR Non- 119.4 > 60 eGFR 144.5 > 60 53 Austin Cole 11/01/2009 [facility] Ebv Vca Positive Negative Comprehensive [phone] Igg Ebv Vca Igm Negative Negative Ebna Positive Negative Ebv Interpretation SEE BELOW () 54 Laboratory test 11/01/2009 [facility] Erythrocyte Sed 54 MM/HR High 0-15 finding [phone] Rate CBC With Manual 11/01/2009 [facility] White Blood 10.8 CUMM 4.8-10.8 Diff [phone] Count Red Cell Count 4.14 CUMM Low 4.2-5.4 Hemoglobin 15.1 g/dL 12.0-16.0 Hematocrit 44 % 35-47 Mean Corpuscular Volume 107 um3 High 79-97 Mean Corpuscular Hemoglob 37 pg High 27-31 Mean Corpuscular HGB Cone 34 g/dL 32-36 Redcell Distribution WDTH 13 % 10.5-15 Platelet Count 128 CUMM Low 150-450 Mean Platelet Volume 9.1 um3 7.4-10.4 Polysegmented Neutrophil 79 % 38-83 Band Neutrophil 10 % High 0-8 Lymphocyte 10 % Low 25-47 Monocyte 1 % 0-13 Absolute Neutrophil Count 9.6 RBC Morphology NORMAL Comp Metabolic 09/06/2007 [facility] One Over Creatinine 1.25 Panel [phone] Anion Gap 3.0 mmol/L 2-11 55 Albumin/Globulin Ratio 1.7 1-3 Albumin 4.4 GM/DL 3.6-5.4 Alkaline Phosphatase 43 U/L 30-110 Alt (SGPT) 15 U/L 14-54 Ast (Sgot) 21 U/L 12-42 BUN 8 mg/dL 6-24 Calcium 9.0 mg/dL 8.7-10.2 Chloride 106 mmol/L 101-111 Co2 (Carbon Dioxide) 28.0 mmol/L 22-32 Globulin 2.6 GM/DL 2-4 Glucose 59 mg/dL Low 70-105 Potassium 4.1 mmol/L 3.5-5.0 Sodium 137 mmol/L 135-145 Bilirubin Total 0.4 mg/dL 0.4-1.5 Total Protein 7.0 GM/DL 6.2-8.1 BUN/Creatinine Ratio 10.0 8-20 Creatinine 0.8 mg/dL 0.5-1.4 CBC With 09/06/2007 [facility] White Blood 3.3 CUMM Low 4.8-10.8 Electronic Diff [phone] Count Abs Basophils 0 0-0.2 Abs Eosinophils 0.1 0-0.6 Absolute Neutrophil Count 1.4 Low 1.5-7.7 Abs Lymphs 1.3 1.0-4.8 Abs Mononuclear 0.4 0-0.8 Basophil % 0.5 % 0-2 Hematocrit 41 % 35-47 56 Hemoglobin 13.9 g/dL 12.0-16.0 Eosinophil % 2.8 % 0-6 Gran % 43.3 % 38-83 Lymph % 40.2 % 20-45 Mean Corpuscular HGB Cone 34 g/dL 32-36 Mean Corpuscular Hemoglob 35 pg High 27-31 Mean Corpuscular Volume 103 um3 High 79-97 Mean Platelet Volume 9.3 um3 7.4-10.4 Mononuclear % 13.2 % High 1-9 Platelet Count 167 CUMM 150-450 Red Cell Count 3.99 CUMM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
[2018-07-18] MEDS ORDERED: LORazepam TAB(*) 1 MG PO ONE (21:11)
[2018-07-18 21:47] LABS: ABS Basophils 0.1 10^3/ul (0-0.2); ABS Eosinophils 0.1 10^3/ul (0-0.6); ABS Lymphocytes 1.9 10^3/ul (1.0-4.8); ABS Monocytes 0.4 10^3/ul (0-0.8); ABS Neutrophils 2.9 10^3/ul (1.5-7.7); ABS Nucleated RBC 0 10^3/ul; Eosinophil % 2.4 %; Hematocrit 44 % (35-47); Hemoglobin 15.3 g/dl (12.0-16.0); Lymphocyte % 35.5 %; Mean Corpuscular HGB Conc 35 g/dl (31-36); Mean Corpuscular Hemoglobin 36 pg (27-31); Mean Corpuscular Volume 106 fL (80-97); Mean Platelet Volume 9.1 fL (7.4-10.4); Nucleated Red Blood Cells % 0; Platelet Count 154 10^3/ul (150-450); Red Blood Count 4.21 10^6/ul (4.00-5.40); Red Cell Distribution Width 13 % (10.5-15); White Blood Count 5.4 10^3/ul (3.5-10.8)
[2018-07-18 21:53] LABS: Albumin 4.6 g/dL (3.2-5.2); Albumin/Globulin Ratio 2.2 (1-3); BUN/Creatinine Ratio 10.8 (8-20); C Reactive Protein 2.99 mg/L (<8.01); Calcium 9.7 mg/dL (8.6-10.3); EGFR Non-African American 83.1 (>60); Globulin 2.1 g/dL (2-4); Potassium 3.5 mmol/L (3.5-5.0); Total Bilirubin 0.6 mg/dL (0.2-1.0); Total Protein 6.7 g/dL (6.4-8.9)
[2018-07-18 21:59] LABS: Urine Appearance Clear; Urine Bilirubin Negative (Negative); Urine Blood Negative (Negative); Urine Color Straw; Urine Glucose Negative (Negative); Urine Ketones Trace (Negative); Urine Nitrite Negative (Negative); Urine Protein Negative (Negative); Urine Specific Gravity 1.004 (1.010-1.030); Urine Urobilinogen Negative (Negative)
[2018-07-18 22:29] LABS: TSH (Thyroid Stimulating Horm) 1.99 mcIU/mL (0.34-5.60)
--- NOTE | 2018-07-18 23:11 | ED ---
HPI Chest Pain - HPI Summary HPI Summary: Patient complains of intermittent chest pain and anxiety, SOB, lightheadedness, ROSALES, decreased appetite, N/V, abdominal cramping 1 month. All symptoms are intermittent. History of painful termination of significant relationship 1 month ago. She has been seen by PCP and given Ambien and Prozac with no relief. Patient also complains of not sleeping at night. CP described as dull , sharp, pressure, lasting 10 minutes at a time, midsternal. Denies prior history of anxiety or chest pain. Also denies exertional SOB, fever, neck stiffness, cough, sore throat, diarrhea, change in urine, change in BM. Medical history is generally distal disease in neck. Positive family cardiac history. Positive smoker. Denies EtOH, or recreational drug use. - History of Current Complaint Chief Complaint: EDChestPainROMI Time Seen by Provider: 07/18/18 20:35 Hx Obtained From: Patient Onset/Duration: Started Weeks Ago Timing: Intermittent, Lasting Minutes Initial Severity: Moderate Current Severity: Moderate Pain Intensity: 5 Pain Scale Used: 0-10 Numeric Chest Pain Location: Mid Sternal Chest Pain Radiates: No Character: Dull/Aching, Pressure/Squeezing Aggravating Factor(s): Nothing Alleviating Factor(s): Nothing Associated Signs and Symptoms: Positive: Anxiety, Recent Stress, Headaches, Shortness of Breath, Lightheadedness, Nausea, Abdominal Pain, Vomiting - Allergy/Home Medications Allergies/Adverse Reactions: Allergies Allergy/AdvReac Type Severity Reaction Status Date / Time adhesive AdvReac Severe red and Verified 02/08/18 09:18 itchy Penicillins AdvReac Severe Nausea And Verified 02/08/18 09:18 Vomiting METAL Allergy Severe SWELLING, Uncoded 02/08/18 09:18 REDNESS, BLISTERS, ITCHY Home Medications: Home Medications FLUoxetine CAP* [Prozac CAP*] 20 mg PO DAILY 07/18/18 [History Confirmed ] Zolpidem Tartrate 10 mg PO BEDTIME 07/18/18 [History Confirmed 07/18/18] PMH/Surg Hx/FS Hx/Imm Hx Endocrine/Hematology History: Denies: Hx Diabetes, Hx Anemia Cardiovascular History: Denies: Hx Cardiac Arrest, Hx Hypertension GI History: Denies: Hx Jaundice History: Denies: Hx Renal Disease Musculoskeletal History: Reports: Hx Arthritis - rheumatoid, Hx Tendonitis - left elbow Sensory History: Reports: Hx Contacts or Glasses - glasses Denies: Hx Hearing Aid Opthamlomology History: Reports: Hx Contacts or Glasses - glasses Neurological History: Denies: Hx Developmental Delay Psychiatric History: Denies: Hx Autism - Cancer History Hx Chemotherapy: No - Surgical History Surgery Procedure, Year, and Place: TUBAL LIGATION. right lateral epicondylitis repair . tonsillectomy at 3 years of age Hx Anesthesia Reactions: No Infectious Disease History: No Infectious Disease History: Denies: Hx Shingles, Traveled Outside the [place] in Last 30 Days - Family History Known Family History: Positive: Cardiac Disease, Hypertension, Diabetes - Social History Alcohol Use: Daily Substance Use Type: Reports: None Hx Tobacco Use: Yes Smoking Status (MU): Heavy Every Day Tobacco Smoker Type: Cigarettes Amount Used/How Often: patient doesn't count how many Have You Smoked in the Last Year: Yes Review of Systems Constitutional: Negative Eyes: Negative ENT: Negative Positive: Chest Pain Positive: Shortness Of Breath Positive: Abdominal Pain, Vomiting, Nausea Genitourinary: Negative Musculoskeletal: Negative Skin: Negative Positive: Headache Positive: Anxious All Other Systems Reviewed And Are Negative: Yes Physical Exam - Summary Physical Exam Summary: Physical exam unremarkable. Chest pain not reproducible. Triage Information Reviewed: Yes Vital Signs On Initial Exam: Initial Vitals Temp Pulse Resp BP Pulse Ox 98.8 F 77 18 108/58 97 07/18/18 17:38 07/18/18 17:38 07/18/18 17:38 07/18/18 17:38 07/18/18 17:38 Vital Signs Reviewed: Yes Appearance: Positive: Well-Appearing Skin: Positive: Warm Head/Face: Positive: Normal Head/Face Inspection Eyes: Positive: Normal ENT: Positive: Normal ENT inspection Neck: Positive: Supple Respiratory/Lung Sounds: Positive: Clear to Auscultation Cardiovascular: Positive: Normal Abdomen Description: Positive: Nontender Musculoskeletal: Positive: Normal Neurological: Positive: Normal Psychiatric: Positive: Normal AVPU Assessment: Alert - Peace Coma Scale Best Eye Response: 4 - Spontaneous Best Motor Response: 6 - Obeys Commands Best Verbal Response: 5 - Oriented Coma Scale Total: 15 Diagnostics - Vital Signs Vital Signs Temp Pulse Resp BP Pulse Ox 07/18/18 21:27 22 07/18/18 21:00 70 98 07/18/18 20:51 69 160/102 98 07/18/18 20:49 65 155/100 95 07/18/18 20:48 67 98 07/18/18 19:35 98.6 F 80 16 138/94 97 07/18/18 17:38 98.8 F 77 18 108/58 97 - Laboratory Lab Results: Lab Results 07/18/18 07/18/18 07/18/18 Range/Units 21:28 21:28 21:28 WBC 5.4 (3.5-10.8) 10^3/ul RBC 4.21 (4.00-5.40) 10^6/ul Hgb 15.3 (12.0-16.0) g/dl Hct 44 (35-47) % MCV 106 H (80-97) fL MCH 36 H (27-31) pg MCHC 35 (31-36) g/dl RDW 13 (10.5-15) % Plt Count 154 (150-450) 10^3/ul MPV 9.1 (7.4-10.4) fL Neut % (Auto) 53.3 % Lymph % (Auto) 35.5 % Zavala % (Auto) 7.8 % Eos % (Auto) 2.4 % Baso % (Auto) 1.0 % Absolute Neuts (auto) 2.9 (1.5-7.7) 10^3/ul Absolute Lymphs (auto) 1.9 (1.0-4.8) 10^3/ul Absolute Monos (auto) 0.4 (0-0.8) 10^3/ul Absolute Eos (auto) 0.1 (0-0.6) 10^3/ul Absolute Basos (auto) 0.1 (0-0.2) 10^3/ul Absolute Nucleated RBC 0 10^3/ul Nucleated RBC % 0 D-Dimer, Quantitative < 200 (Less Than 230) ng/mL Sodium 138 (135-145) mmol/L Potassium 3.5 (3.5-5.0) mmol/L Chloride 105 (101-111) mmol/L Carbon Dioxide 24 (22-32) mmol/L Anion Gap 9 (2-11) mmol/L BUN 8 (6-24) mg/dL Creatinine 0.74 (0.51-0.95) mg/dL Est GFR ( Amer) 100.5 (>60) Est GFR (Non-Af Amer) 83.1 (>60) BUN/Creatinine Ratio 10.8 (8-20) Glucose 161 H (70-100) mg/dL Calcium 9.7 (8.6-10.3) mg/dL Total Bilirubin 0.60 (0.2-1.0) mg/dL AST 26 (13-39) U/L ALT 25 (7-52) U/L Alkaline Phosphatase 54 (34-104) U/L Troponin I 0.00 (<0.04) ng/mL C-Reactive Protein 2.99 (<8.01) mg/L Total Protein 6.7 (6.4-8.9) g/dL Albumin 4.6 (3.2-5.2) g/dL Globulin 2.1 (2-4) g/dL Albumin/Globulin Ratio 2.2 (1-3) TSH 1.99 (0.34-5.60) mcIU/mL Urine Color Urine Appearance Urine pH (5-9) Ur Specific [place] (1.010-1.030) Urine Protein (Negative) Urine Ketones (Negative) Urine Blood (Negative) Urine Nitrate (Negative) Urine Bilirubin (Negative) Urine Urobilinogen (Negative) Ur Leukocyte Esterase (Negative) Urine Glucose (Negative) 07/18/18 Range/Units 21:36 WBC (3.5-10.8) 10^3/ul RBC (4.00-5.40) 10^6/ul Hgb (12.0-16.0) g/dl Hct (35-47) % MCV (80-97) fL MCH (27-31) pg MCHC (31-36) g/dl RDW (10.5-15) % Plt Count (150-450) 10^3/ul MPV (7.4-10.4) fL Neut % (Auto) % Lymph % (Auto) % Zavala % (Auto) % Eos % (Auto) % Baso % (Auto) % Absolute Neuts (auto) (1.5-7.7) 10^3/ul Absolute Lymphs (auto) (1.0-4.8) 10^3/ul Absolute Monos (auto) (0-0.8) 10^3/ul Absolute Eos (auto) (0-0.6) 10^3/ul Absolute Basos (auto) (0-0.2) 10^3/ul Absolute Nucleated RBC 10^3/ul Nucleated RBC % D-Dimer, Quantitative (Less Than 230) ng/mL Sodium (135-145) mmol/L Potassium (3.5-5.0) mmol/L Chloride (101-111) mmol/L Carbon Dioxide (22-32) mmol/L Anion Gap (2-11) mmol/L BUN (6-24) mg/dL Creatinine (0.51-0.95) mg/dL Est GFR ( Amer) (>60) Est GFR (Non-Af Amer) (>60) BUN/Creatinine Ratio (8-20) Glucose (70-100) mg/dL Calcium (8.6-10.3) mg/dL Total Bilirubin (0.2-1.0) mg/dL AST (13-39) U/L ALT (7-52) U/L Alkaline Phosphatase (34-104) U/L Troponin I (<0.04) ng/mL C-Reactive Protein (<8.01) mg/L Total Protein (6.4-8.9) g/dL Albumin (3.2-5.2) g/dL Globulin (2-4) g/dL Albumin/Globulin Ratio (1-3) TSH (0.34-5.60) mcIU/mL Urine Color Straw Urine Appearance Clear Urine pH 7.0 (5-9) Ur Specific [place] 1.004 L (1.010-1.030) Urine Protein Negative (Negative) Urine Ketones Trace A (Negative) Urine Blood Negative (Negative) Urine Nitrate Negative (Negative) Urine Bilirubin Negative (Negative) Urine Urobilinogen Negative (Negative) Ur Leukocyte Esterase Negative (Negative) Urine Glucose Negative (Negative) Result Diagrams: 07/18/18 21:28 07/18/18 21:28 Lab Statement: Any lab studies that have been ordered have been reviewed, and results considered in the medical decision making process. Chest Pain Course/Dx - Course Course Of Treatment: Patient complains of intermittent chest pain and anxiety, SOB, lightheadedness, ROSALES, decreased appetite, N/V, abdominal cramping 1 month. All symptoms are intermittent. History of painful termination of significant relationship 1 month ago. She has been seen by PCP and given Ambien and Prozac with no relief. Patient also complains of not sleeping at night. CP described as dull, sharp, pressure, lasting 10 minutes at a time, midsternal. Denies prior history of anxiety or chest pain. Also denies exertional SOB, fever, neck stiffness, cough, sore throat, diarrhea, change in urine, change in BM. Medical history is generally distal disease in neck. Positive family cardiac history. Positive smoker. Denies EtOH, or recreational drug use. Physical exam:Physical exam unremarkable. Chest pain not reproducible. Vital signs within normal limits. Labs unremarkable. EKG unremarkable. Chest x-ray unremarkable. Negative d-dimer. Chest pain likely related to anxiety. Rx for Vistaril. Follow-up with primary care - Diagnoses Provider Diagnoses: Anxiety Discharge - Sign-Out/Discharge Documenting (check all that apply): Patient Departure - Discharge Plan Condition: Stable Disposition: HOME Prescriptions: hydrOXYzine pamoate [Vistaril] 50 mg PO Q6HR 10 Days #40 capsule LORazepam [Ativan] 1 mg PO DAILY 2 Days #2 tablet MDD 2 tabs Patient Education Materials: Anxiety (ED) Referrals: Pranay Escamilla TRAINING CONSULTANT [Primary Care Provider] - Additional Instructions: Follow-up with primary care. Return to the ED for any new or worsening symptoms - Billing Disposition and Condition Condition: STABLE Disposition: Home
[2018-07-18 23:31] VITALS: BP 133/91
== END 2018-07-18 23:25 | disposition home or self-care (01) ==
LOC: ED 17:27
DX: F41.9 Anxiety disorder, unspecified (principal); Z88.0 Allergy status to penicillin; Z91.048 Other nonmedicinal substance allergy status; F17.210 Nicotine dependence, cigarettes, uncomplicated
CPT/HCPCS: 36415; 71045; 80053; 81003; 84443; 84484; 85025; 85379; 86140; 93005; 99283; A9270-GY

== ENCOUNTER 2019-06-17 13:55 | Emergency (ER) | payer BC ==
[2019-06-17 14:00] VITALS: BP 145/97
--- OUTSIDE RECORDS SUMMARY | 2019-06-17 16:46 | XMS REPORT | Continuity of Care Document ---
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 [phone] Problems Active Problems Provider Date Closed fracture of multiple sites of metacarpus Rishi Ritchie MD Onset: Social History Type Date Description Comments Sex Unknown ETOH Use Currently consumes alcohol Tobacco Use Start: Unknown Light tobacco smoker (10 or fewer cigarettes/day) Smoking Status Reviewed: 06/02/19 Light tobacco smoker (10 or fewer cigarettes/day) Exercise Type/Frequency Exercises regularly Allergies, Adverse Reactions, Alerts Active Allergies Reaction Severity Comments Date Penicillins 06/28/2016 Tegaderm 06/28/2016 [place] 06/28/2016 Medications Active Medications SIG Qnty Indications Ordering Provider Date Naproxen 1 by mouth twice a 30tabs S62.327A Erin Paris, 02/06/2018 500mg day as needed M.DMarva Tablets B12 Fast Dissolve sublingual daily 90tabs Jersey Flores, 10/27/2017 M.DMarva 5000mcg Tablets Dispers Ibuprofen 1 by mouth three Unknown 600mg times a day as Tablets needed Tretinoin apply to affected Unknown 0.05% Cream area every day Glucosamine 1 cap by mouth Unknown 500mg once daily Capsules Vitamin D3 1 cap by mouth Unknown Capsules daily Medications Administered in Office Medication SIG Qnty Indications Ordering Provider Date Depomedrol 40MG Erin Paris M.D. 06/28/2016 Injection Immunizations Description No Information Available Vital Signs Date Vital Result Comment 06/02/2019 2:43pm Height 65 inches 5'5" Weight 135.00 lb Heart Rate 77 /min Body Temperature 97.0 F O2 % BldC Oximetry 95 % BMI (Body Mass Index) 22.5 kg/m2 04/09/2019 3:12pm Height 64 inches 5'4" Weight 137.00 lb Heart Rate 76 /min BP Systolic 118 mmHg BP Diastolic 80 mmHg Respiratory Rate 16 /min Body Temperature 97.8 F Pain Level 3 BMI (Body Mass Index) 23.5 kg/m2 Results Description No Information Available Procedures Description No Information Available Medical Devices Description No Information Available Encounters Type Date Location Provider Dx Diagnosis Office Visit 04/09/2019 [facility] Erin Paris, S62.327D Disp fx of shaft 3:00p at [place] Rodriguez.D. 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 shaft of 5th MC bone, l hand, 7thD Assessments Date Code Description Provider 04/09/2019 S62.327D Displaced fracture of shaft of fifth Erin Paris M.D. metacarpal bone, left h 04/09/2019 M24.542 Contracture, left hand Erin Paris M.D. 02/26/2019 S62.327D Displaced fracture of shaft of fifth Erin Paris M.D. metacarpal bone, left h 02/26/2019 M24.542 Contracture, left hand Erin Paris M.D. 02/26/2019 M72.0 Palmar fascial fibromatosis [Dupuytren] Erin Paris M.D. 01/22/2019 S62.327D Displaced fracture of shaft of fifth Erin Paris M.D. metacarpal bone, left h 01/09/2019 S62.327D Displaced fracture of shaft of fifth Mary Ellen Carias, RPA -C metacarpal bone, left h Plan of Treatment No Information Available Functional Status Description No Information Available Mental Status Description No Information Available Referrals Description No Information Available
== END 2019-06-17 15:40 | disposition left against medical advice (07) ==
LOC: ED 13:55
DX: Z53.21 Procedure and treatment not carried out due to patient leaving prior to being seen by health care provider (principal); R42 Dizziness and giddiness; R11.0 Nausea
CPT/HCPCS: 99281